=== PATIENT | male | born 1960 | race Two or more races ===

== ENCOUNTER 2019-11-25 12:07 | Outpatient (CLI) | payer OTHER ==
[~2019-11-25] VITALS: Ht 182.9 cm; Wt 116.1 kg
[2019-11-25] MEDS ORDERED: CIPRODEX OTIC7.5 ML OT (14:05)
== END 2019-11-25 14:14 | disposition home or self-care (01) ==
LOC: OFIC 805 12:07
DX: L29.8 Other pruritus (principal); H60.21 Malignant otitis externa, right ear; H61.23 Impacted cerumen, bilateral

== ENCOUNTER 2020-03-31 14:37 | Outpatient (CLI) | payer OTHER ==
[~2020-03-31 14:37] MED LIST: CIPRODEX OTIC7.5 ML OT
== END 2020-03-31 16:00 | disposition home or self-care (01) ==
LOC: OFIC 805 14:37
PROVIDERS: ATTEND Otolaryngology Otology & Neurotology
DX: H60.8X2 Other otitis externa, left ear (principal); H72.92 Unspecified perforation of tympanic membrane, left ear; H66.3X2 Other chronic suppurative otitis media, left ear

== ENCOUNTER 2020-04-16 09:16 | Outpatient (CLI) | payer OTHER | END 2020-04-16 10:00 | disposition home or self-care (01) | LOC: OFIC 805 09:16 | PROVIDERS: ATTEND Otolaryngology Otology & Neurotology | DX: H90.12 Conductive hearing loss, unilateral, left ear, with unrestricted hearing on the contralateral side (principal); H66.3X2 Other chronic suppurative otitis media, left ear; H72.92 Unspecified perforation of tympanic membrane, left ear ==

== ENCOUNTER 2020-05-14 12:03 | Outpatient (CLI) | payer OTHER | END 2020-05-14 13:20 | disposition home or self-care (01) | LOC: OFIC 805 12:03 | PROVIDERS: ATTEND Otolaryngology Otology & Neurotology | DX: H91.13 Presbycusis, bilateral (principal); H66.3X2 Other chronic suppurative otitis media, left ear; H72.92 Unspecified perforation of tympanic membrane, left ear; H69.82 Other specified disorders of Eustachian tube, left ear ==

== ENCOUNTER 2023-05-18 05:15 | Day surgery (SDC) | payer OTHER ==
[2023-05-11 09:59] LABS: HEMOGLOBIN 15.2 g/dL (13-16.00); MEAN CELL VOLUME 91.9 fL (80.0-100.00); MEAN CORPUSCULAR HEMOGLOBIN 32.4 pg (27.00-32.0); MEAN CORPUSCULAR HGB CONC 35.3 g/dl (32.0-36.0); PLATELET COUNT 293 K/uL (150-450); RED BLOOD COUNT 4.68 M/uL (4.00-6.00); RED CELL DISTRIBUTION WIDTH 13.7 % (11.5-14.5)
[2023-05-11 10:05] LABS: PH,URINE 5.5 (5.0-8.0); URINE APPEARANCE Clear; URINE BILIRRUBIN Negative (NEGATIVE); URINE BLOOD Negative; URINE COLOR Yellow; URINE LEUKOCYTE Negative; URINE NITRATE Negative; URINE PROTEIN Negative (NEGATIVE); URINE UROBILINOGEN 0.2 E.U./dl
[2023-05-11 10:18] LABS: INR 0.96; PARTIAL THROMBOPLASTIN TIME 28.4 SECONDS (22.0-34.0); PROTHROMBIN TIME 10.1 SECONDS (9.0-11.5)
[2023-05-11 10:20] LABS: URINE BACTERIA 1.2 uL (0.0-1933); URINE EPITHELIAL CELLS 0.7 uL (0.0-38.8); URINE GLUCOSE >=1000 MG/DL (NEGATIVE); URINE WBC 1.5 uL (0.0-23.2)
[2023-05-11 10:24] LABS: ALBUMIN 3.9 gm/dL (3.4-5.0); BILIRUBIN TOTAL 0.44 mg/dL (0.3-1.2); CALCIUM 9.7 mg/dL (8.5-10.1); CREATININE SERUM 0.67 mg/dL (0.70-1.30); GFR 120.59; GLOBULINA 3.6 G/DL (2.4-3.5); POTASSIUM 4.88 mEq/L (3.5-5.1); TOTAL PROTEIN 7.5 gm/dL (6.4-8.2)
[~2023-05-18 05:15] MED LIST changes: +ADULT LOW DOSE81 M1 PO; +AMLODIPINE-OLM1 EAC3 PO; +ATORVASTATIN CA80 MG PO; +OMEPRAZOLE MAGN20 MG PO; +OSENI 25-15 MG1 EACH PO; +SYNJARDY 12.5-1 EACH PO; +ZESTRIL40 M1 PO
[2023-05-18] MEDS ORDERED: CIPROFLOXACIN2.5 ML OTIC (10:03)
[2023-05-18] MEDS ORDERED: CEPHALEXIN500 MG PO (10:03)
== END 2023-05-18 11:45 | disposition home or self-care (01) ==
LOC: CIR.AMB 05:15
PROVIDERS: ATTEND Otolaryngology Otology & Neurotology
DX: H70.11 Chronic mastoiditis, right ear (principal); H90.11 Conductive hearing loss, unilateral, right ear, with unrestricted hearing on the contralateral side; Z20.822 Contact with and (suspected) exposure to COVID-19; E11.9 Type 2 diabetes mellitus without complications; E78.5 Hyperlipidemia, unspecified; I10 Essential (primary) hypertension